=== PATIENT | male | born 1990 | race Two or more races ===

== ENCOUNTER 2023-07-24 18:01 | Emergency (ER) | payer OTHER, MEDICAID ==
[~2023-07-24] VITALS: Ht 170.2 cm; Wt 69.5 kg
[2023-07-24 19:41] VITALS: BP 113/74; PULSE 74; RESP 18; TEMP 98.6; O2SAT 99
[2023-07-24 20:09] LABS: Urine Bacteria FEW /hpf (None Seen); Urine Blood Negative /uL (Negative); Urine Clarity Clear (Clear); Urine Color Light-Yellow (Yellow); Urine Mucus FEW (None Seen); Urine Protein, UAD Negative (Negative); Urine Specific Gravity 1.017 (1.001-1.035); Urine Urobilinogen Normal (Negative); Urine WBC 1 /hpf (0 - 3); Urine pH 6.5 (5.0-9.0)
[2023-07-24 20:12] LABS: Basophils # (auto) 0 10 ^3/uL (0-0.2); Basophils % (auto) 0.1 % (0.0-2.0); Eosinophils # (auto) 0 10 ^3/uL (0-0.8); Eosinophils % (auto) 0.2 % (0.0-7.0); Hematocrit 44.8 % (41.0-53.0); Hemoglobin 15.1 g/dL (13.5-17.5); Lymphocytes % (auto) 5.9 % (10.0-50.0); Mean Corpuscular Hemoglobin 31.7 pg (28.0-32.0); Mean Corpuscular Hgb Conc. 33.6 g/dL (32.0-36.0); Mean Corpuscular Volume 94.2 fL (80.0-100.0); Monocytes # (auto) 0.8 10 ^3/uL (0-1.3); Monocytes % (auto) 5.1 % (0.0-12.0); Neutrophils # (auto) 14.5 10 ^3/uL (1.6-8.6); Neutrophils % (auto) 88.7 % (37.0-80.0); Red Blood Cells 4.75 10^6/uL (4.5-5.90); Red Cell Distribution Width 13.2 % (11.8-14.3); White Blood Cell 16.3 10^3/uL (4.4-10.8)
[2023-07-24 20:25] LABS: Alanine Aminotransferase 26 U/L (7-40); Albumin 5.4 g/dL (3.2-4.8); Alkaline Phosphatase 82 U/L (46-116); Anion Gap 5 (5-15); Aspartate Aminotransferase 19 U/L (13-40); BUN/Creatinine Ratio 9.5 (10.0-20.0); Bilirubin, Total 0.6 mg/dL (0.2-1.0); Blood Urea Nitrogen 9 mg/dL (9-23); Calcium 10.6 mg/dL (8.5-10.1); Carbon Dioxide 26 mmol/L (20-30); Chloride 107 mmol/L (98-107); Glucose 119 mg/dL (74-106); Potassium 4.1 mmol/L (3.5-5.1); Sodium 138 mmol/L (136-145)
[2023-07-24] MEDS ORDERED: cefTRIAXone 2GM/50ML D5W 50 ML IV ONE (21:00)
[2023-07-24] MEDS: SODIUM CHLORIDE 0.9% 2,000 ML IV ONE (21:40)
[2023-07-24] MEDS: cefTRIAXone 1GM/50ML D5W 50 ML IV ONE ×2 (22:01)
[2023-07-24] MEDS ORDERED: CYCL-611 PO (23:08)
[2023-07-24] MEDS ORDERED: IBUP1TAB5 PO (23:08)
[2023-07-24] MEDS ORDERED: PHEN-1045 PO (23:08)
[2023-07-24] MEDS ORDERED: CEPH500C PO (23:08)
[2023-07-24] MEDS: AZITHROMYCIN 250 MG TAB PO ONE (23:14)
== END 2023-07-24 23:21 | disposition home or self-care (01) ==
LOC: ER 18:01
DX: M62.830 Muscle spasm of back (principal); M54.50 Low back pain, unspecified; N39.0 Urinary tract infection, site not specified; R30.0 Dysuria
CPT/HCPCS: 36415; 72100; 74176; 80053; 81001; 83605; 85025; 86256; 87040; 96365; 99285; J0696; J7030

== ENCOUNTER 2023-08-17 17:43 | Emergency (ER) | payer OTHER, MEDICAID ==
[~2023-08-17] VITALS: Ht 170.2 cm; Wt 65.1 kg
[~2023-08-17 17:43] MED LIST: CEPH500C PO; CYCL-611 PO; IBUP1TAB5 PO; PHEN-1045 PO
[2023-08-17 19:58] LABS: Basophils # (auto) 0 10 ^3/uL (0-0.2); Basophils % (auto) 0.1 % (0.0-2.0); Eosinophils # (auto) 0 10 ^3/uL (0-0.8); Hematocrit 44.1 % (41.0-53.0); Hemoglobin 15.4 g/dL (13.5-17.5); Lymphocytes # (auto) 0.8 10 ^3/uL (0.4-5.4); Lymphocytes % (auto) 15.5 % (10.0-50.0); Mean Corpuscular Hemoglobin 31.9 pg (28.0-32.0); Mean Corpuscular Hgb Conc. 34.9 g/dL (32.0-36.0); Mean Corpuscular Volume 91.4 fL (80.0-100.0); Monocytes # (auto) 0.4 10 ^3/uL (0-1.3); Neutrophils # (auto) 4.2 10 ^3/uL (1.6-8.6); Neutrophils % (auto) 76.4 % (37.0-80.0); Nucleated Red Blood Cells % 0.2 %; Red Blood Cells 4.83 10^6/uL (4.5-5.90); Red Cell Distribution Width 12.5 % (11.8-14.3); White Blood Cell 5.5 10^3/uL (4.4-10.8)
[2023-08-17 20:09] LABS: Chloride 104 mmol/L (98-107); Potassium 4.4 mmol/L (3.5-5.1); Sodium 137 mmol/L (136-145)
[2023-08-17 20:10] LABS: Anion Gap 14 (5-15); Calcium 11.1 mg/dL (8.7-10.4); Carbon Dioxide 19 mmol/L (20-30)
[2023-08-17 20:12] LABS: Urine Bacteria None Seen /hpf (None Seen); Urine WBC None Seen /hpf (0 - 3)
[2023-08-17 20:15] LABS: BUN/Creatinine Ratio 10.1 (10.0-20.0); Blood Urea Nitrogen 9 mg/dL (9-23); Glucose 106 mg/dL (74-106)
[2023-08-17 20:29] VITALS: BP 124/89; PULSE 98; RESP 18; TEMP 98.6; O2SAT 98
[2023-08-17 20:30] LABS: Urine Blood Negative /uL (Negative); Urine Clarity Clear (Clear); Urine Color Colorless (Yellow); Urine Protein, UAD Negative (Negative); Urine Specific Gravity 1.002 (1.001-1.035); Urine Urobilinogen Normal (Negative)
[2023-08-17] MEDS ORDERED: ACET500T58 PO (20:36)
== END 2023-08-17 20:57 | disposition home or self-care (01) ==
LOC: ER 17:43
DX: R30.0 Dysuria (principal); E86.0 Dehydration; Z79.1 Long term (current) use of non-steroidal anti-inflammatories (NSAID); Z79.899 Other long term (current) drug therapy
CPT/HCPCS: 36415; 80048; 81001; 85025